=== PATIENT | female | born 1985 | race African-American/Black ===

== ENCOUNTER 2019-02-15 04:09 | Emergency (ER) | payer BC ==
[2019-02-15] MEDS ORDERED: NS 0.9% 1000 ML** 1,000 ML IV ONE (04:21)
--- NOTE | 2019-02-15 04:26 | ED ---
GI/ HPI - HPI Summary HPI Summary: Pt is a 33 y/o female who presents to the ED c/o N/V/D. She woke up at 2:00 this morning and began having N/V/D. Pt believes that she has food poisoning. Last night patient had a caesar salad, sweet potato fries, and shrimp scampi with scallops for dinner at the [employer]. She is currently unaware of anybody else being sick. While in triage she was vomiting when she became near- syncopal. Pt is shivering in the room and states that heat makes her nausea worse. She also notes back pain from vomiting, but denies any abdominal pain. LNMP several days ago. - History of Current Complaint Chief Complaint: EDNauseaVomitDiarrh Time Seen by Provider: 02/15/19 04:13 Stated Complaint: "POSS FOOD POISONING, VOMITING" PER PT Hx Obtained From: Patient Onset/Duration: Started Hours Ago - 2:00 this morning, Still Present Timing: Constant Pain Intensity: 0 Associated Signs and Symptoms: Positive: Syncope - near, Nausea, Vomiting, Diarrhea. Negative: Abdominal Pain Aggravating Factor(s): Food - possible food poisoning Alleviating Factor(s): Nothing - Allergy/Home Medications Allergies/Adverse Reactions: Allergies Allergy/AdvReac Type Severity Reaction Status Date / Time No Known Allergies Allergy Verified 02/15/19 04:12 PMH/Surg Hx/FS Hx/Imm Hx Endocrine/Hematology History: Denies: Hx Diabetes Cardiovascular History: Denies: Hx Hypertension Infectious Disease History: No Infectious Disease History: Denies: Traveled Outside the [place] in Last 30 Days - Family History Known Family History: Positive: Non-Contributory - Social History Alcohol Use: None Hx Substance Use: No Substance Use Type: Reports: None Hx Tobacco Use: No Smoking Status (MU): Never Smoked Tobacco Review of Systems Positive: Vomiting, Diarrhea, Nausea. Negative: Abdominal Pain Positive: Myalgia - back pain Positive: Syncope - near All Other Systems Reviewed And Are Negative: Yes Physical Exam - Summary Physical Exam Summary: Appearance: well appearing, mild pain distress, rigors Skin: warm, reflects adequate perfusion, diaphoretic Head/face: normal Eyes: EOMI, [place] ENT: mucous membranes moist Neck: supple, non-tender Respiratory: CTA, breath sounds present Cardiovascular: RRR, pulses symmetrical Abdomen: non-tender, soft Bowel Sounds: decreased Musculoskeletal: normal, strength/ROM intact Neuro: normal, sensory motor intact, A&Ox3 Triage Information Reviewed: Yes Vital Signs On Initial Exam: Initial Vitals Temp Pulse Resp BP Pulse Ox 98.8 F 98 16 120/59 100 02/15/19 04:10 02/15/19 04:10 02/15/19 04:10 02/15/19 04:10 02/15/19 04:10 Vital Signs Reviewed: Yes Diagnostics - Vital Signs Vital Signs Temp Pulse Resp BP Pulse Ox 02/15/19 04:10 98.8 F 98 16 120/59 100 - Laboratory Result Diagrams: 02/15/19 04:50 02/15/19 04:50 Lab Statement: Any lab studies that have been ordered have been reviewed, and results considered in the medical decision making process. - EKG 5:14 Cardiac Rate: NL - 69 bpm EKG Rhythm: Sinus Rhythm ST Segment: Normal Summary of EKG Findings: Nl axis, nl intervals Re-Evaluation - Re-Evaluation First Eval Re-Evaluation Time: 05:45 Change: Improved Comment: Pt feels much better. GIGU Course/Dx - Course Course Of Treatment: Nurse's notes reviewed. Patient with abrupt onset of nausea vomiting and diarrhea after eating a seafood dinner at her hotel. 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 Her laboratories are benign and she is feeling much better after IV fluids, Zofran and Pepcid. She is able to be discharged on oral dissolving Zofran to use as needed. - Diagnoses Differential Diagnoses - Female: Gastroenteritis (Viral), Gastroenteritis ( Bacterial), Other - Food poisoning Provider Diagnoses: Food poisoning Discharge - Sign-Out/Discharge Documenting (check all that apply): Patient Departure - Discharge Patient Received Moderate/Deep Sedation with Procedure: No - Discharge Plan Condition: Improved Disposition: HOME Prescriptions: Ondansetron ODT TAB* [Zofran 4 MG Odt TAB*] 4 mg PO Q6H PRN #12 tab.odt PRN Reason: Nausea Patient Education Materials: Food Poisoning (ED) Referrals: No Primary Care Phys,NOPCP [Primary Care Provider] - Additional Instructions: Follow-up with your doctor in [place] as needed. Return to an ER with persistent vomiting, abdominal pain, high fever, lightheadedness, worse or other concerns. You may fly if otherwise feeling improved. - Billing Disposition and Condition Condition: IMPROVED Disposition: Home - Attestation Statements Document Initiated by Genevieve: Yes Documenting Scribe: Qing Jones Provider For Whom Genevieve is Documenting (Include Credential): Tyron Raymundo MD Scribe Attestation: I, Qing Jones, scribed for Tyron Raymundo MD on 02/15/19 at 0638. Scribe Documentation Reviewed: Yes Provider Attestation: The documentation as recorded by the Qing pryor accurately reflects the service I personally performed and the decisions made by me, Tyron Raymundo MD Status of Scribe Document: Viewed
[2019-02-15] MEDS ORDERED: Famotidine TAB* 20 MG PO ONE (04:44)
[2019-02-15] MEDS ORDERED: Ondansetron INJ* 2 MG/ML VIAL IV ONE (04:44)
[2019-02-15 05:00] LABS: ABS Basophils 0.1 10^3/ul (0-0.2); ABS Eosinophils 0.1 10^3/ul (0-0.6); ABS Lymphocytes 2.1 10^3/ul (1.0-4.8); ABS Monocytes 0.7 10^3/ul (0-0.8); ABS Neutrophils 6.3 10^3/ul (1.5-7.7); ABS Nucleated RBC 0 10^3/ul; Eosinophil % 1.1 %; Hematocrit 32 % (33-41); Hemoglobin 10.7 g/dL (12.0-16.0); Lymphocyte % 22.7 %; Mean Corpuscular HGB Conc 33 g/dL (31-36); Mean Corpuscular Hemoglobin 28 pg (27-31); Mean Corpuscular Volume 85 fL (80-97); Mean Platelet Volume 8.6 fL (7.4-10.4); Nucleated Red Blood Cells % 0; Platelet Count 285 10^3/uL (150-450); Red Cell Distribution Width 14 % (10.5-15); White Blood Count 9.4 10^3/uL (3.5-10.8)
[2019-02-15 05:08] LABS: Albumin 3.7 g/dL (3.2-5.2); Anion Gap 7 mmol/L (2-11); CO2 Carbon Dioxide 24 mmol/L (22-32); Calcium 8.7 mg/dL (8.6-10.3); Chloride 106 mmol/L (101-111); Potassium 3.9 mmol/L (3.5-5.0); Sodium 137 mmol/L (135-145)
[2019-02-15 05:14] LABS: ALT 13 U/L (7-52); AST 14 U/L (13-39); Albumin/Globulin Ratio 1.6 (1-3); Alkaline Phosphatase 45 U/L (34-104); Blood Urea Nitrogen 12 mg/dL (6-24); EGFR African American 106.4 (>60); EGFR Non-African American 87.9 (>60); Globulin 2.3 g/dL (2-4); Glucose 124 mg/dL (70-100)
[2019-02-15 05:44] VITALS: BP 107/60
[2019-02-15 06:08] LABS: HCG Pregnancy < 0.60 mIU/mL
== END 2019-02-15 05:46 | disposition home or self-care (01) ==
LOC: ED 04:09
DX: T61.8X1A Toxic effect of other seafood, accidental (unintentional), initial encounter (principal); R11.2 Nausea with vomiting, unspecified; R19.7 Diarrhea, unspecified; R55 Syncope and collapse; Y92.59 Other trade areas as the place of occurrence of the external cause
CPT/HCPCS: 36415; 80053; 84702; 85025; 93005; 96361; 96374; 99282; A9270-GY; J2405